=== PATIENT | female | born 1960 | race Caucasian/White ===

== ENCOUNTER 2020-07-30 07:04 | Day surgery (SDC) | payer BC ==
[~2020-07-30 07:04] MED LIST: Lactated Ringers 1,000 ML IV SCH; Sodium Chloride 0.9% 10 ML Syringe FLUSH PRN
[2020-07-30] MEDS ORDERED: Lidocaine 1% PF 2 ML SDV INJECT ONE (07:05)
[2020-07-30] MEDS ORDERED: Propofol 200 MG/20 ML SDV IV ONE (07:05)
--- NOTE | 2020-07-30 08:43 | PCM.HPR ---
H & P Addendum review - H & P Addendum Review Date of Original H & P: 07/09/20 Date Reviewed: 07/30/20 Time Reviewed: 08:42 Patient was Examined: No Changes
--- NOTE | 2020-07-30 09:11 | PCM.OPNOTE ---
- General Post-Op/Procedure Note Date of Surgery/Procedure: 07/30/20 Operative Procedure(s): Colonoscopy with polypectomy Findings: Sig tics; Asc polyp Pre Op Diagnosis: Screening Post-Op Diagnosis: Same Anesthesia Technique: MAC Primary Surgeon: Moe Colunga Complications: None Condition: Good
--- NOTE | 2020-07-31 16:59 | OR ---
DATE OF OPERATION: 07/30/2020 SURGEON: Moe Colunga MD PREOPERATIVE DIAGNOSIS: Colon screening. POSTOPERATIVE DIAGNOSES: 1. Ascending colon polyp. 2. Sigmoid diverticulosis. PROCEDURE: Colonoscopy with polypectomy. ANESTHESIA: IV sedation. PROCEDURE IN DETAIL: The patient was brought to the procedure room, where she was placed on her left side and IV sedation administered. Digital rectal exam was performed, which was normal. The colonoscope was inserted and advanced to the level of the cecum with some difficulty getting through a tortuous sigmoid colon with looping requiring pressure on the abdomen. I was able to reach the cecum, which was confirmed by identifying the appendiceal lumen and ileocecal valve. Prep was good and surfaces were well visualized. In the proximal ascending colon just beyond the ileocecal valve was a small 6 mm sessile polyp removed with a hot biopsy forceps and sent for pathology review. The remaining ascending, transverse, and descending colon were normal. The sigmoid colon was quite tortuous with multiple large diverticula present. Rectum was normal and retroflexion was normal. Air was removed and the scope withdrawn. The patient tolerated the procedure well and returned to recovery in stable condition. The patient will be contacted with the pathology report when it returns. If the polyp is adenomatous, she should undergo a repeat colonoscopy again in 5 years or if the polyp is hyperplastic, she could wait for 10 years for her next colon screening. /[id number]
== END 2020-07-30 10:00 | disposition home or self-care (01) ==
LOC: FB.SDS 07:04
PROVIDERS: ATTEND Surgery
DX: Z12.11 Encounter for screening for malignant neoplasm of colon (principal); D12.2 Benign neoplasm of ascending colon; K57.30 Diverticulosis of large intestine without perforation or abscess without bleeding; G47.00 Insomnia, unspecified; G43.909 Migraine, unspecified, not intractable, without status migrainosus; Z90.49 Acquired absence of other specified parts of digestive tract; Z79.899 Other long term (current) drug therapy; Z98.890 Other specified postprocedural states
CPT/HCPCS: 00812; 45384; 88305; J2001; J2704; J7120